=== PATIENT | female | born 1930 | race Caucasian/White ===

== ENCOUNTER 2018-11-05 11:24 | Emergency (ER) | payer OTHER ==
[~2018-11-05] VITALS: Ht 160 cm; Wt 59.0 kg
[2018-11-05] MEDS ORDERED: SODIUM CHLORIDE 0.9% 1,000 ML IV ONE (11:34)
[2018-11-05 12:15] LABS: Hemoglobin 9.8 g/dL (12.2-16.2); Mean Corpuscular Hemoglobin 30.6 pg (28.0-32.0); Mean Corpuscular Hgb Conc. 33.9 g/dL (32.0-36.0); Mean Corpuscular Volume 90.4 fL (80.0-100.0); Platelet Count (auto) 96 10^3/uL (140-450); Red Blood Cells 3.21 10^6/uL (4.0-5.20); Red Cell Distribution Width 17.5 % (11.8-14.3); White Blood Cell 3.6 10^3/uL (4.4-10.8)
[2018-11-05 12:25] LABS: Basophils % (manual) 0 (0.0-2.0); Blast Cells 0; Eosinophils % (manual) 0 (0-7); Metamyelocytes % 0; Myelocytes % 0; Promyelocytes % 0
[2018-11-05 12:29] LABS: INR 3.29 (0.9-1.15); Partial Thromboplastin Time 37.3 sec (23.78-33.04); Prothrombin Time 32.9 sec (9.27-12.13)
[2018-11-05 12:34] LABS: BUN/Creatinine Ratio 17.7; Bilirubin, Total 1.1 mg/dL (0.2-1.0); Total Protein 6.2 g/dL (6.4-8.2)
[2018-11-05 12:47] LABS: Urine Bacteria NONE SEEN /hpf (None Seen); Urine Blood Negative /uL (Negative); Urine Specific Gravity 1.014 (1.001-1.035); Urine WBC 5 /hpf (0 - 5)
[2018-11-05 13:00] LABS: Calcium 14.6 mg/dL (8.5-10.1)
[2018-11-05] MEDS ORDERED: LEVETIRACETAM INJ 500 MG in D5W 5% 100 ML IV ONE (13:00)
[2018-11-05] MEDS ORDERED: FUROSEMIDE 40 MG/4 ML VIAL IV ONE (13:15)
[2018-11-05] MEDS ORDERED: LEVOFLOXACIN 500MG 100 ML IV ONE (13:30)
[2018-11-05 13:56] LABS: Band Neutrophils % (manual) 2; Lymphocytes % (manual) 36 (10.0-50.0)
[2018-11-05 13:57] LABS: Monocytes % (manual) 13 (0-12); Reactive Lymphocytes 1
[2018-11-05 16:57] VITALS: BP 117/53
== END 2018-11-05 17:13 | disposition short-term general hospital (02) ==
LOC: ER 11:24
DX: F03.90 Unspecified dementia, unspecified severity, without behavioral disturbance, psychotic disturbance, mood disturbance, and anxiety (principal); D69.6 Thrombocytopenia, unspecified; N39.0 Urinary tract infection, site not specified; E83.52 Hypercalcemia; J45.909 Unspecified asthma, uncomplicated; R41.82 Altered mental status, unspecified; E07.9 Disorder of thyroid, unspecified; I10 Essential (primary) hypertension; Z88.0 Allergy status to penicillin
CPT/HCPCS: 36415; 51702; 70450; 71045; 80053; 81001; 83880; 84484; 85007; 85027; 85610; 85730; 86850; 86900; 86901; 93005; 94761; 96365; 96375; 99285; J1940; J1953; J1956; J7030; J7060